=== PATIENT | female | born 1975 | race African-American/Black ===

== ENCOUNTER 2019-08-05 15:48 | Emergency (ER) | payer OTHER ==
--- NOTE | 2019-08-05 16:23 | UC ---
FLU HPI - HPI Summary HPI Summary: 44 yo female presents with flu-like symptoms. She tells me that over the last 4 days she has had fatigue, body aches/joint pain, decreased appetite, and intermittent headaches. She notes that her headache seems mostly frontal around her frontal sinuses and also points to her maxillary sinuses, but she does not feel congested or have a runny nose. She has not taken anything OTC for her symptoms. She has been eating and drinking, but does not feel hungry. She has not taken her temperature. Did not get a flu shot this year. She denies any medical history. Denies vision changes, neck pain, dizziness, numbness, weakness , sinus symptoms, sore throat, cough, SOB, chest pain/palpitations, abdominal pain, vomiting, diarrhea, dysuria, flank pain, vaginal bleeding or discharge. LMP was 1st week of Jul. - History of Current Complaint Chief Complaint: UCGeneralIllness Stated Complaint: HEADACHE, ABDOMINAL PAIN Time Seen by Provider: 08/05/19 16:21 Hx Obtained From: Patient Hx Last Menstrual Period: 07/24/19 Onset/Duration: Sudden Onset Severity Currently: Mild Severity Initially: Mild Pain Intensity: 4 Pain Scale Used: 0-10 Numeric - Allergy/Home Medications Allergies/Adverse Reactions: Allergies Allergy/AdvReac Type Severity Reaction Status Date / Time No Known Allergies Allergy Verified 08/05/19 16:11 PMH/Surg Hx/FS Hx/Imm Hx - Additional Past Medical History Additional PMH: None - Surgical History Surgical History: Yes Surgery Procedure, Year, and Place: WISDOM TEETH - Family History Known Family History: Positive: None - Social History Occupation: Employed Full-time Lives: With Family Alcohol Use: Rare Substance Use Type: None Smoking Status (MU): Never Smoked Tobacco Review of Systems All Other Systems Reviewed And Are Negative: No Constitutional: Positive: Fatigue Skin: Positive: Negative Eyes: Positive: Negative ENT: Positive: Negative Respiratory: Positive: Negative Cardiovascular: Positive: Negative Gastrointestinal: Positive: Nausea Genitourinary: Positive: Negative Motor: Positive: Negative Neurovascular: Positive: Negative Musculoskeletal: Positive: Negative Neurological/Mental Status: Positive: Headache Psychological: Positive: Negative Physical Exam - Summary Physical Exam Summary: GENERAL: NAD. WDWN. No pain distress. SKIN: No rashes, sores, ulcers, masses, lesions. HEENT: Head: AT/NC. Eyes: PERRLA. EOM intact. Conjunctiva clear without inflammation or discharge. Ears: Hearing grossly normal. TMs intact, no bulging, erythema, or edema. Nose: Nasal mucosa pink and moist. NTTP maxillary and frontal sinus. Throat: Posterior oropharynx without exudates, erythema, or tonsillar enlargement. Uvula midline. NECK: Supple. Nontender. Shotty anterior cervical LAD. CHEST: CTAB. No r/r/w. No accessory muscle use. Breathing comfortably and in no distress. CV: RRR. Pulses intact. Brisk cap refill. ABDOMEN: Soft. NTTP. Bowel sounds present MSK: FROM in B/L UEs and LEs with symmetric strength. NEURO: A&Ox3. CN: II: Peripheral molina intact. Vision normal. III, IV, : EOMI. No nystagmus. PERRLA. V: Sensations intact and symmetric. Opens mouth and clenches teeth. VII: No facial asymmetry. Forehead wrinkles. Grins, shuts eyes, frowns, puffs cheeks. VIII: Hearing intact to finger rub. IX, X: Swallows and coughs. Uvula midline. XI: Shrugs shoulders. Turns head against resistance. XII : No tongue deviation Aymewr-ir-bftc are intact. Gait with normal base. Romberg : maintains balance, no pronator drift. Normal speech. No facial drooping. PSYCH: Age appropriate behavior. Triage Information Reviewed: Yes Vital Signs: Initial Vital Signs Temp 100.0 F 08/05/19 16:05 Pulse 93 08/05/19 16:05 Resp 18 08/05/19 16:05 BP 154/93 08/05/19 16:05 Pulse Ox 100 08/05/19 16:05 Laboratory Tests 08/05/19 08/05/19 08/05/19 16:20 16:21 16:22 POC Urine Color Dark yellow POC Urine Clarity Slightly cloudy POC Urine pH 6.0 POC Ur Specif Hooper 1.025 POC Urine Protein Negative POC Ur Glucose (UA) Negative POC Urine Ketones 1+ A POC Urine Blood 1+ A POC Urine Nitrite Negative POC Urine Bilirubin 1+ A POC Urine Urobilinogen 0.2 POC U Leukocyte Esteras Negative POC Ur Test Negative Influenza A (Rapid) Negative Influenza B (Rapid) Negative Vital Signs: Temp Pulse Resp BP Pulse Ox 100.0 F 93 18 115/77 100 08/05/19 16:05 08/05/19 16:05 08/05/19 16:05 08/05/19 16:57 08/05/19 16:05 Ondansetron ODT TAB* [Zofran 4 MG Odt TAB*] 4 mg PO Q8H PRN #12 tab.odt [Rx] Vital Signs Reviewed: Yes Flu Course/Dx - Course Course Of Treatment: UA as above. POC flu negative. Urine negative. Recheck BP much improved from intake vitals. She does have some shotty anterior cervical LAD, but exam is otherwise unremarkable and is without abdominal tenderness or neurological deficits. Favor a viral illness at this time. Discussed with pt and she mentions that she felt similar to this when she had lyme disease in the past. Will obtain CBC, CMP , TSH, lyme, and lipase today to further evaluate her symptoms. I did discuss her incidental finding of microscopic hematuria today and recommended she f/u with her PCP within 1 week for a recheck of this, review of bloodwork, and recheck of her symptoms. If she develops a fever, abdominal pain, vomiting, SOB/chest pain, or worsening symptoms to go to the ED immediately. She voiced understanding and agrees with the plan. - Differential Dx/Diagnosis Provider Diagnosis: Fatigue, Body aches, Decreased appetite Discharge ED - Sign-Out/Discharge Documenting (check all that apply): Patient Departure All imaging exams completed and their final reports reviewed: No Studies - Discharge Plan Condition: Stable Disposition: HOME Prescriptions: Ondansetron ODT TAB* [Zofran 4 MG Odt TAB*] 4 mg PO Q8H PRN #12 tab.odt PRN Reason: Nausea Patient Education Materials: Hematuria (ED), Viral Syndrome (ED) Referrals: Dorina Cohen MD [Primary Care Provider] - 1 Week Additional Instructions: If you develop a fever, shortness of breath, chest pain, abdominal pain, vomiting, new or worsening symptoms - please call your PCP or go to the ED immediately. - Your exam revealed some swollen lymph nodes in your neck today, but was otherwise normal/unremarkable. - You did have some microscopic blood in your urine, which is likely an incidental finding, but I recommend you have this rechecked with your PCP. - We have drawn labwork today to further evaluate your symptoms. Please schedule an appointment with your primary doctor within 1 week for a recheck of your symptoms, hematuria (blood in urine), and review of labwork. - Billing Disposition and Condition Condition: STABLE Disposition: Home
[2019-08-05 16:32] LABS: Influenza A Molecular Negative (Negative); Influenza B Molecular Negative (Negative)
[2019-08-05 16:57] VITALS: BP 115/77
[2019-08-05 18:51] LABS: ABS Lymphocytes 1.3 10^3/ul (1.0-4.8); ABS Monocytes 0.3 10^3/ul (0-0.8); ABS Neutrophils 5.3 10^3/ul (1.5-7.7); Eosinophil % 0.3 %; Hematocrit 44 % (35-47); Hemoglobin 15.3 g/dL (12.0-16.0); Lymphocyte % 18.9 %; Mean Corpuscular HGB Conc 35 g/dL (31-36); Mean Corpuscular Hemoglobin 30 pg (27-31); Mean Corpuscular Volume 88 fL (80-97); Mean Platelet Volume 8.6 fL (7.4-10.4); Platelet Count 300 10^3/uL (150-450); Red Blood Count 5.03 10^6 /uL (3.70-4.87); Red Cell Distribution Width 13 % (10-15)
[2019-08-05 19:11] LABS: Albumin 4.6 g/dL (3.2-5.2); Anion Gap 9 mmol/L (2-11); CO2 Carbon Dioxide 25 mmol/L (22-32); Calcium 9.6 mg/dL (8.6-10.3); Chloride 103 mmol/L (101-111); Potassium 4.3 mmol/L (3.5-5.0); Sodium 137 mmol/L (135-145)
[2019-08-05 19:17] LABS: ALT 8 U/L (7-52); AST 13 U/L (13-39); Albumin/Globulin Ratio 1.7 (1-3); Alkaline Phosphatase 53 U/L (34-104); BUN/Creatinine Ratio 7.5 (8-20); Blood Urea Nitrogen 6 mg/dL (6-24); EGFR African American 94.3 (>60); EGFR Non-African American 77.9 (>60); Globulin 2.7 g/dL (2-4); Glucose 97 mg/dL (70-100); Total Protein 7.3 g/dL (6.4-8.9)
--- NOTE | 2019-08-06 08:10 | UC ---
- Progress Note Progress Note: CBC with diff, CMP, TSH reviewed no change in management Anuj 08/06/19 Course/Dx - Diagnoses Provider Diagnoses: Fatigue, Body aches, Decreased appetite Discharge ED - Sign-Out/Discharge Documenting (check all that apply): Post-Discharge Follow Up All imaging exams completed and their final reports reviewed: No Studies - Discharge Plan Condition: Stable Disposition: HOME Prescriptions: Ondansetron ODT TAB* [Zofran 4 MG Odt TAB*] 4 mg PO Q8H PRN #12 tab.odt PRN Reason: Nausea Patient Education Materials: Hematuria (ED), Viral Syndrome (ED) Referrals: Dorina Cohen MD [Primary Care Provider] - 1 Week Additional Instructions: If you develop a fever, shortness of breath, chest pain, abdominal pain, vomiting, new or worsening symptoms - please call your PCP or go to the ED immediately. - Your exam revealed some swollen lymph nodes in your neck today, but was otherwise normal/unremarkable. - You did have some microscopic blood in your urine, which is likely an incidental finding, but I recommend you have this rechecked with your PCP. - We have drawn labwork today to further evaluate your symptoms. Please schedule an appointment with your primary doctor within 1 week for a recheck of your symptoms, hematuria (blood in urine), and review of labwork. - Billing Disposition and Condition Condition: STABLE Disposition: Home
== END 2019-08-05 17:00 | disposition home or self-care (01) ==
LOC: UCEAST 15:48
DX: R53.83 Other fatigue (principal); M79.10 Myalgia, unspecified site; R63.8 Other symptoms and signs concerning food and fluid intake; R51 Headache; R11.0 Nausea
CPT/HCPCS: 36415; 80053; 81003; 83690; 84443; 84702; 85025; 86618; 99212; G0463

== ENCOUNTER 2019-08-11 13:06 | Emergency (ER) | payer OTHER ==
[2019-08-11 13:14] VITALS: BP 129/87
--- NOTE | 2019-08-11 13:56 | UC ---
General HPI - HPI Summary HPI Summary: 44-year-old woman comes in with chief complaint of a headache and epigastric pain. Symptoms started about 11 days ago. Patient was seen here on July and had normal CBC and CMP. Urine did have some blood in it. Lyme screen was negative. Patient has had a history of Lyme disease in the past. Headache is mostly around the frontal sinuses. Patient denies sinusitis symptoms. Occasionally the headaches also in the occiput. She has had intermittent blurry vision. Approximately a month ago she had eye examination and was prescribed reader glasses. Reports she has not really been using the reader glasses. Patient occasionally has left arm tingling. Patient reports she's had similar symptoms ever since she's had Lyme disease. No complaint of any focal neurologic deficit that's constant. Patient describes the abdominal pain as burning. Primarily in the epigastrium. She has decreased appetite. Reports the last time she was yesterday. - History of Current Complaint Chief Complaint: UCHeadache Stated Complaint: HEADACHE, STOMACHE ACHE Time Seen by Provider: 08/11/19 13:30 Hx Last Menstrual Period: 07/24/2019 Pain Intensity: 5 - Allergy/Home Medications Allergies/Adverse Reactions: Allergies Allergy/AdvReac Type Severity Reaction Status Date / Time No Known Allergies Allergy Verified 08/11/19 13:14 Home Medications: Home Medications DOXYcycline CAP(*) [DOXYcycline 100MG CAP(*)] 100 mg PO BID #20 cap 08/11/19 [Rx ] Fluticasone NASAL SPRAY 50MCG* [Flonase NASAL SPRAY 50MCG*] 2 spray BOTH NARES DAILY #1 btl 08/11/19 [Rx] Omeprazole 20 mg PO BID #30 capsule. 08/11/19 [Rx] Ondansetron ODT TAB* [Zofran 4 MG Odt TAB*] 4 mg PO Q6H PRN #15 tab.odt [Rx] PMH/Surg Hx/FS Hx/Imm Hx Previously Healthy: Yes - Surgical History Surgical History: Yes Surgery Procedure, Year, and Place: WISDOM TEETH - Family History Known Family History: Positive: None - Social History Alcohol Use: Rare Substance Use Type: None Smoking Status (MU): Never Smoked Tobacco Review of Systems All Other Systems Reviewed And Are Negative: Yes Constitutional: Positive: Fatigue, Other - see hpi Skin: Positive: Negative Eyes: Positive: Negative ENT: Positive: Other - see hpi Respiratory: Positive: Negative Cardiovascular: Positive: Negative Gastrointestinal: Positive: Abdominal Pain, Other - see hpi Genitourinary: Positive: Other - see hpi Motor: Positive: Negative Neurovascular: Positive: Negative Musculoskeletal: Positive: Negative Neurological/Mental Status: Positive: Headache Psychological: Positive: Negative Is Patient Immunocompromised?: No Physical Exam Triage Information Reviewed: Yes Appearance: No Pain Distress, Well-Nourished, Other: - Appears fatigued. Vital Signs: Initial Vital Signs Temp 99.2 F 08/11/19 13:11 Pulse 106 08/11/19 13:11 Resp 16 08/11/19 13:11 BP 129/87 08/11/19 13:11 Pulse Ox 99 08/11/19 13:11 Vital Signs Reviewed: Yes Eye Exam: Normal Eyes: Positive: Conjunctiva Clear, Other: - PERRLA EOMI. No photophobia. Optic nerve disc has clear borders on the left. I was not able to visualize the optic nerve on the right. ENT: Positive: Pharynx normal, TMs normal Neck: Positive: Supple Respiratory: Positive: Lungs clear, Normal breath sounds, No respiratory distress Cardiovascular: Positive: RRR Musculoskeletal: Positive: Strength Intact, ROM Intact Neurological: Positive: Alert Psychological: Positive: Age Appropriate Behavior Skin Exam: Normal Course/Dx - Course Course Of Treatment: Site Monitor: Franky Evans ([id number]) Head Men'S Tennis Coach: FRANCISCO (ROSIEANCE) Report Date: 08/11/2019 14:43:00 Report Status: Final Start of Report Content Patient Name: JUANCARLOS VEGA Medical Record#: [id number] Ordering Physician: Reji Lou MD Acct.#: [id number] : Age: 44 Sex: F Location: [facility] Exam Date: 08/11/19 1356 ADM Status: REG ER Order Information: US GALL BLADDER Accession Number: [id number] CPT: 06170 INDICATION: Epigastric/right upper quadrant pain. COMPARISON: There are no relevant prior studies available for comparison. TECHNIQUE: Multiple real-time images of the right upper quadrant were obtained. FINDINGS: Sonographic Napier sign is negative. The gallbladder appear normal. No gallstones, gallbladder wall thickening or pericholecystic fluid is present. No intra or extrahepatic ductal distention is present. The common bile duct measured 0.3 cm in diameter. The liver is normal in morphology without focal abnormality. The pancreas is mostly obscured by overlying bowel gas. The 9.8 cm right kidney is normal in size without evidence for hydronephrosis. The imaged segments of the aorta and IVC are unremarkable. IMPRESSION: UNREMARKABLE GALLBLADDER. NO INTRA OR EXTRA HEPATIC BILIARY DUCTAL DILATATION. <Electronically signed by Franky Evans MD in OV> 08/11/19 1440 Dictated By: Franky Evans MD Dictated Date/Time: 08/11/19 1435 Transcribed Date/Time: 08/11/19 1435 Copy to: CC:Dorina Cohen MD ; Reji Lou MD Imaging - [facility] - [place] [facility] [address] [address] ph ([phone]) ph ([phone]) ph ([phone]) ==== End of Report Content Site Monitor: Franky Evans, ([id number]) Head Men'S Tennis Coach: FRANCISCO (NUANCE) Report Date: 08/11/2019 14:17:00 Report Status: Final Start of Report Content Patient Name: JUANCARLOS VEGA Medical Record#: [id number] Ordering Physician: Reji Lou MD Acct.#: [id number] : Age: 44 Sex: F Location: [facility] Exam Date: 08/11/19 1356 ADM Status: [facility] Order Information: CT BRAIN WO Accession Number: [id number] CPT: 84960 INDICATION: Headache. COMPARISON: There are no relevant prior studies available for comparison. TECHNIQUE: Contiguous axial sections of the brain were obtained from the skull base to the vertex without contrast. FINDINGS: There is no hemorrhagic focus, mass effect or midline shift. The amaya- white matter differentiation is grossly maintained without abnormal cerebral edema. The ventricles are of conventional size and configuration. The basal cisterns are patent. There is no abnormal extra axial collection. The globes and orbits are symmetric. The paranasal sinuses and mastoid air cells are predominantly well aerated. IMPRESSION: No acute intracranial abnormality. <Electronically signed by Franky Evans MD in OV> 08/11/19 1414 Dictated By: Franky Evans MD Dictated Date/Time: 08/11/19 141 Transcribed Date/Time: 08/11/19 141 Copy to: CC:Dorina Cohen MD; Reji Lou MD Imaging - [facility] - [place] [facility] [address] [address] ph ) ph ([phone]) ph ([phone]) End of Report Content I discussed the ultrasound and CT with the patient. Patient's headache is primarily frontal and maxillary headache with orbital involvement. I recommended further evaluation ophthalmology for possible eye cause for the headache. Patient is concerned that these symptoms are from a recurrence of her Lyme disease. No obvious signs of sinusitis other than the frontal and maxillary feeling of pressure. Will treat with Flonase and doxycycline. For the epigastric pain prescribed omeprazole and Zofran. Patient will be follow- up with primary care physician for her symptoms. Get reevaluated sooner if worse or any questions or concerns. - Diagnoses Provider Diagnosis: Headache, Epigastric pain Discharge ED - Sign-Out/Discharge Documenting (check all that apply): Patient Departure All imaging exams completed and their final reports reviewed: Yes - Discharge Plan Condition: Stable Disposition: HOME Prescriptions: DOXYcycline CAP(*) [DOXYcycline 100MG CAP(*)] 100 mg PO BID #20 cap Fluticasone NASAL SPRAY 50MCG* [Flonase NASAL SPRAY 50MCG*] 2 spray BOTH NARES DAILY #1 btl Omeprazole 20 mg PO BID #30 capsule. Ondansetron ODT TAB* [Zofran 4 MG Odt TAB*] 4 mg PO Q6H PRN #15 tab.odt PRN Reason: Nausea Patient Education Materials: Acute Headache (ED), Epigastric Pain (ED) Referrals: Dorina Cohen MD [Primary Care Provider] - [facility] [Provider Group] Additional Instructions: FOLLOW UP WITH YOUR PRIMARY CARE DOCTOR AND OPHTHALMOLOGY. GET REEVALUATED SOONER IF NOT IMPROVED OR WORSE OR ANY QUESTIONS OR CONCERNS. - Billing Disposition and Condition Condition: STABLE Disposition: Home
== END 2019-08-11 15:20 | disposition home or self-care (01) ==
LOC: UCEAST 13:06
DX: R51 Headache (principal); R10.13 Epigastric pain; R53.83 Other fatigue
CPT/HCPCS: 70450; 76705; 99212; G0463

== ENCOUNTER 2019-08-22 09:38 | Emergency (ER) | payer OTHER ==
--- NOTE | 2019-08-22 10:40 | ED ---
Headache - HPI Summary HPI Summary: 44 year old F presenting to [facility] accompanied by her mother with a chief complaint of a constant headache, fatigue, abdominal pain that she describes as burning, blurred vision, decreased appetite, and tingling down her left arm, since 3 weeks ago. The patient rates the pain 8/10 in severity. Patient reports that her headache is worse in the morning. Symptoms aggravated by nothing. Symptoms alleviated by nothing. Patient denies feeling off-balance or a history of diabetes or hypertension. She was seen by her PCP for her symptoms and was prescribed a migraine medication which she did not take. Patient denies any trauma or recent travel. She has a history of Lyme disease. Medication list reviewed. Allergy list reviewed. Home Medications Medication Instructions Recorded Confirmed Type Fluticasone NASAL SPRAY 50MCG* 2 spray BOTH NARES DAILY #1 btl 08/11/19 Rx [Flonase NASAL SPRAY 50MCG*] Ondansetron ODT TAB* [Zofran 4 MG 4 mg PO Q6H PRN #15 tab.odt 08/11/19 Rx Odt TAB*] Amoxicillin/Clavulanate TAB* 1 tab PO BID 08/22/19 08/22/19 History [Augmentin TAB 875*] SUMAtriptan TAB* [Imitrex TAB*] 50 mg PO SEE INSTRUCTIONS MDD 4 08/22/19 History tabs - History Of Current Complaint Chief Complaint: EDHeadache Stated Complaint: HEADACHE, LEFT ARM TINGLING, BLURRY VISION PER PT Time Seen by Provider: 08/22/19 10:28 Hx Obtained From: Patient, Family/Property Specialist Hx Last Menstrual Period: 07/24/2019 Onset/Duration: Started days ago, Started weeks ago Initially Headache Was: Moderate Currently Pain Is: Moderate Timing: Constant Character: Pressure Aggravating Factor: Nothing Allevating Factors: Nothing Associated Signs And Symptoms: Visual Changes, Other (Noted In Comments) - Fatigue; abdominal pain; decreased appetite; tingling in her left arm - Allergies/Home Medications Allergies/Adverse Reactions: Allergies Allergy/AdvReac Type Severity Reaction Status Date / Time No Known Allergies Allergy Verified 08/22/19 14:08 Home Medications: Home Medications Fluticasone NASAL SPRAY 50MCG* [Flonase NASAL SPRAY 50MCG*] 2 spray BOTH NARES DAILY #1 btl 08/11/19 [Rx Confirmed 08/22/19] Ondansetron ODT TAB* [Zofran 4 MG Odt TAB*] 4 mg PO Q6H PRN #15 tab.odt [Rx Confirmed 08/22/19] Amoxicillin/Clavulanate TAB* [Augmentin TAB 875*] 1 tab PO BID 08/22/19 [ History Confirmed 08/22/19] Metoclopramide TAB* [Reglan TAB*] 10 mg PO Q6H PRN #20 tab 08/22/19 [Rx] SUMAtriptan TAB* [Imitrex TAB*] 50 mg PO SEE INSTRUCTIONS MDD 4 tabs 08/22/19 [ History Confirmed 08/22/19] PMH/Surg Hx/FS Hx/Imm Hx Endocrine/Hematology History: Denies: Hx Diabetes, Hx Thyroid Disease Cardiovascular History: Denies: Hx Hypertension, Hx Pacemaker/ICD Respiratory History: Denies: Hx Asthma, Hx Chronic Obstructive Pulmonary Disease (COPD) GI History: Denies: Hx Ulcer History: Denies: Hx Renal Disease Sensory History: Denies: Hx Hearing Aid Psychiatric History: Denies: Hx Panic Disorder - Surgical History Surgery Procedure, Year, and Place: WISDOM TEETH Infectious Disease History: Yes - Lyme disease Infectious Disease History: Denies: Hx Hepatitis, Hx Human Immunodeficiency Virus (HIV), Traveled Outside the [place] in Last 30 Days - Family History Known Family History: Positive: Hypertension, Diabetes - Social History Alcohol Use: Rare Substance Use Type: Reports: None Smoking Status (MU): Never Smoked Tobacco Review of Systems Positive: Fatigue Positive: Blurred Vision Positive: Abdominal Pain, Other - Decreased appetite Positive: Other - Tingling in left arm Neurological/Mental Status: Negative - Balance problems Positive: Headache All Other Systems Reviewed And Are Negative: Yes Physical Exam - Summary Physical Exam Summary: Constitutional: Well-developed, Well-nourished, Alert. (-) Distressed Skin: Warm, Dry HENT: Normocephalic; Atraumatic Eyes: Conjunctiva normal Neck: Musculoskeletal ROM normal neck. (-) JVD, (-) Stridor, (-) Tracheal deviation Cardio: Rhythm regular, rate normal, Heart sounds normal; Intact distal pulses; The pedal pulses are 2+ and symmetric. Radial pulses are 2+ and symmetric. (-) Murmur Pulmonary/Chest wall: Effort normal. (-) Respiratory distress, (-) Wheezes, (-) Rales Abd: Soft, (-) tenderness, (-) Distension, (-) Guarding, (-) Rebound Musculoskeletal: (-) Edema Lymph: (-) Cervical adenopathy Neuro: Alert, Oriented x3; no nystagmus; no focal deficits; no dysmetria Psych: Mood and affect Normal Triage Information Reviewed: Yes Vital Signs On Initial Exam: Initial Vitals Temp Pulse Resp BP Pulse Ox 98.3 F 100 16 139/95 100 08/22/19 09:44 08/22/19 09:44 08/22/19 09:44 08/22/19 09:44 08/22/19 09:44 Vital Signs Reviewed: Yes Procedures - Sedation Patient Received Moderate/Deep Sedation with Procedure: No Diagnostics - Vital Signs Vital Signs Temp Pulse Resp BP Pulse Ox 08/22/19 09:44 98.3 F 100 16 139/95 100 - Laboratory Result Diagrams: 08/22/19 10:51 08/22/19 10:51 Lab Statement: Any lab studies that have been ordered have been reviewed, and results considered in the medical decision making process. Headache Course/Dx - Course Course Of Treatment: 44 year old F presenting to [facility] accompanied by her mother with a chief complaint of a constant headache, fatigue, abdominal pain that she describes as burning, blurred vision, decreased appetite, and tingling down her left arm, since 3 weeks ago. Physical exam findings: no nystagmus, no focal deficits, no dysmetria. Laboratory results with no significant abnormalities except for a potassium of 3.3, AST of 12, and ALT of 6. In the ED course, the patient was given benadryl, potassium chloride, normal saline, reglan, solu-medrol, and toradol. We discussed patient care with Dr. Espinosa at 13 :58 who recommends a single dose of IV Solumedrol and script for Reglan. Follow- up with neurology in 6-8 weeks if symptoms are ongoing. May need an MRI of the brain for further evaluation. Patient will be discharged with prescription for Reglan and follow up from neurology. The patient is agreeable with this plan. - Diagnoses Provider Diagnoses: Migraine - Physician Notifications Discussed Care Of Patient With: Yissel Espinosa Time Discussed With Above Provider: 10:55 - Discussed with Dr. Espinosa, will consult in the ED. Instructed by Provider To: Other - [13:58] Spoke with Dr. Espinosa who recommends single dose of IV Solumedrol and script for Reglan. Follow-up with neurology in 6-8 weeks if symptoms are ongoing. May need an MRI of the brain for further evaluation. Discharge ED - Sign-Out/Discharge Documenting (check all that apply): Patient Departure - Discharge Plan Condition: Stable Disposition: HOME Prescriptions: Metoclopramide TAB* [Reglan TAB*] 10 mg PO Q6H PRN #20 tab PRN Reason: Nausea Patient Education Materials: Migraine Headache (ED) Referrals: Dorina Cohen MD [Primary Care Provider] - Yissel Espinosa MD [Medical Doctor] - 09/26/19 Additional Instructions: Follow-up with neurology in 6-8 weeks if symptoms are ongoing. Return to the emergency department for changing or worsening symptoms. - Billing Disposition and Condition Condition: STABLE Disposition: Home - Attestation Statements Document Initiated by Scribe: Yes Documenting Scribe: Gabriela Guerrero Provider For Whom Scribe is Documenting (Include Credential): Dwayne Sparks DO Scribe Attestation: Gabriela Nieves scribed for Dwayne Sparks DO on 08/22/19 at 1544. Scribe Documentation Reviewed: Yes Provider Attestation: The documentation as recorded by the Gabriela ngo accurately reflects the service I personally performed and the decisions made by Dwayne san DO Status of Scribe Document: Viewed
[2019-08-22] MEDS ORDERED: Metoclopramide IV* 5 MG/ML 2 ML VIAL IV ONE (10:46)
[2019-08-22] MEDS ORDERED: Ketorolac INJ* 30 MG/ML 1 ML VIAL IV PUSH ONE (10:46)
[2019-08-22] MEDS ORDERED: NS 0.9% 1000 ML** 1,000 ML IV ONE (10:46)
[2019-08-22] MEDS ORDERED: diPHENhydraMINE IV* 50 MG/ML 1 ml VIAL (BENADRYL) IV ONE (10:46)
[2019-08-22 10:57] LABS: ABS Lymphocytes 1.2 10^3/ul (1.0-4.8); ABS Monocytes 0.3 10^3/ul (0-0.8); ABS Neutrophils 4.7 10^3/ul (1.5-7.7); Eosinophil % 0.3 %; Hematocrit 41 % (35-47); Hemoglobin 14.5 g/dL (12.0-16.0); Lymphocyte % 18.6 %; Mean Corpuscular HGB Conc 35 g/dL (31-36); Mean Corpuscular Hemoglobin 31 pg (27-31); Mean Corpuscular Volume 88 fL (80-97); Mean Platelet Volume 7.9 fL (7.4-10.4); Nucleated Red Blood Cells % 0.2; Platelet Count 265 10^3/uL (150-450); Red Blood Count 4.69 10^6 /uL (3.70-4.87); Red Cell Distribution Width 12 % (10-15); White Blood Count 6.3 10^3/uL (3.5-10.8)
[2019-08-22 11:23] LABS: ALT 6 U/L (7-52); AST 12 U/L (13-39); Albumin 4.3 g/dL (3.2-5.2); Albumin/Globulin Ratio 1.7 (1-3); Alkaline Phosphatase 42 U/L (34-104); Anion Gap 8 mmol/L (2-11); BUN/Creatinine Ratio 9.8 (8-20); Blood Urea Nitrogen 8 mg/dL (6-24); C Reactive Protein < 1.00 mg/L (<8.01); CO2 Carbon Dioxide 25 mmol/L (22-32); Calcium 9.1 mg/dL (8.6-10.3); Chloride 105 mmol/L (101-111); EGFR African American 91.6 (>60); EGFR Non-African American 75.7 (>60); Globulin 2.5 g/dL (2-4); Glucose 100 mg/dL (70-100); Potassium 3.3 mmol/L (3.5-5.0); Sodium 138 mmol/L (135-145); Total Protein 6.8 g/dL (6.4-8.9)
[2019-08-22] MEDS ORDERED: Potassium Chlor TAB* 20 MEQ TAB.ER PO ONE (11:25)
[2019-08-22 12:42] LABS: Erythrocyte Sed Rate 1 mm/Hr (0-19)
[2019-08-22] MEDS ORDERED: methylPREDNISolone 125 MG* 2 ML VIAL IV ONE (13:59)
[2019-08-22 14:18] VITALS: BP 101/67
--- NOTE | 2019-08-22 15:06 | CONSULT ---
Consult Consult: Neurology Inpatient Consult Note Date of service: 08/22/2019 Reason for consult: Neurology was consulted by Dr. Clare Galan. The history was obtained by the patient. Chief complaint: Headache History of Present Illness: Ms. Janice Branch is a 44-year-old female with history of treated Lyme disease in the past who presents with a three week history of constant headache. The headache is described as interchangeable pain that is sometimes in the front, but occasionally in the right and left back of the head. The pain is dull in sensation, 8/10 in severity, non-radiating, and associated with photophobia and nausea. The pain improved after Toradol, Benadryl, and Reglan. The pain is 4/ 10 in severity. She experiences blurry vision in both eyes when the headache is severe. The pain is no exacerbated when coughing, sneezing, or straining. She noticed a tingling sensation few days ago involving the left arm, mostly in the lateral surface of the left forearm. She denied any neck pain. She denied any focal weakness or paresthesia at this time. She has been taking over the counter NSAIDs and Tylenol. She has noticed increase in abdominal pain since taking these medications. The pain is epigastric, non-radiating, that improved with Reglan. In terms of the history of Lyme, the patient was treated for over 30 days with Doxycycline. She was also recently treated with Doxycylcine for 10 days for suspected sinusitis. Labs, Imaging and Other Diagnostics: Potassium: 3.3 IMAGING: CT head without contrast 08/11/2019: No acute intracranial abnormality. Past Medical History: Nail fungus Past Surgical History: None Family History: Maternal grandmother had a stroke. There is no family history of migraine headaches or seizures. Social History: She is single. She has three children. She owns her own business. She has no history of tobacco or alcohol abuse. Allergies No Known Allergies Allergy (Verified 08/22/19 14:08) Review of Systems: A 14-point ROS was obtained and otherwise negative except for what was mentioned in the HPI. Physical Exam: Vital Signs - 12 hr Temp Pulse Resp BP Pulse Ox 08/22/19 14:17 98.8 F 84 14 101/67 98 08/22/19 13:38 140/78 08/22/19 13:08 75 116/79 100 08/22/19 13:00 80 99 08/22/19 12:38 79 117/79 100 08/22/19 12:08 75 129/84 100 08/22/19 12:00 79 100 08/22/19 11:47 79 141/82 100 08/22/19 11:08 72 126/81 99 08/22/19 11:07 69 99 08/22/19 09:44 98.3 F 100 16 139/95 100 General: well nourished, well developed. Alert, cooperative, no apparent distress, appears stated age. NIHSS: 0 Head: normocephalic, without obvious abnormality. No occipital notch tenderness. Eyes: conjunctivae/corneas clear Neck: supple, symmetrical. No carotid bruit. No lymphadenopathy. Lungs: clear to auscultation bilaterally, non-labored CV: regular rhythm, S1, S2 normal, radial pulses palpable Extremities: normal range of motion with no cyanosis. Skin: no skin lesions or lacerations Psych: affect-broad and normal mood. Easy to establish rapport. Neurological examination: Mental status: awake; alert and oriented to person, place, time, & general circumstances; speech & language including expression, naming, repetition, & comprehension was assessed and found to be normal. Cranial nerves: I: not tested II, III, IV, : normal confrontation B/L, Pupils midrange and reactive to light , normal consensual response; extraocular muscles are intact; no ptosis; no conjugate or asymmetrical nystagmus. Fundoscopic examination shows normal disc margins and normal venous pulsation. V 1/2/3: sensation is intact on forehead, cheeks, and jaw region VII: no facial droop; facial symmetry while smiling & wrinkling of forehead; tight lid closure VIII: able to hear throughout the history process IX & X: symmetric palatal elevation XI: normal strength against resistance XII: tongue is symmetrical & midline with no atrophy or fasciculations Motor (R/L): no abnormal movements, no pronator drift. Normal bulk and tone throughout. No fasciculations. Neck extension 5. Shoulder ROM is full. Shoulder abduction 5/5. Elbow flexion 5/5, extension 5/5. Wrist flexion 5/5, extension 5/5. Finger flexion 5/5, extension 5/5, abduction 5/5. Hip flexion 5/5, abduction 5/5. Knee flexion 5/5, extension 5/5. Ankle dorsiflexion 5/5, plantarflexion 5/5. Great toe extension 5/5. Reflexes: 1+ throughout. Plantar flexor response bilaterally. Sensation is intact to light touch throughout. Normal vibration and proprioception at the great toes. Coordination: normal finger to nose and rapid alternating movements. Gait & Station: narrow based; normal stance and gait. No ataxia. Assessment: 1. Headache. Most likely non-intractable status migrainosus given the description of unilateral pain, lasting more than 4 hours, associated with photophobia and nausea, with a negative neurologic and fundoscopic examination. She responded well to Reglan, Toradol, and Benadryl. Her headache dropped from a 8 to a 4/10 in severity. She has no fevers or leukocytosis to suspect meningitis. She doesn't snore when sleeping and has a normal Mallampati score so it's unlikely this is secondary to FABIOLA. She has no Valsalva inducing headache and a normal fundoscopic examination thus it's not likely to be related to IHH. 2. Abdominal pain, relieved by Reglan therapy. This can be due to the nausea, anorexia, and NSAID therapy causing gastritis or PUD. 3. Hypokalemia: defer to the primary team. Recommendations: - Check vitamin B12, cortisol, and TSH to evaluate for secondary causes of headache. - Recommend discontinuing all NSAIDs and acetaminophen therapy - Give one dose of methylprednisolone 125 mg IV x 1 for acute abortive therapy of the headache - Start her on Reglan 10 mg every 8 hours for 3 days for nausea and headaches - Start Riboflavin 100 mg twice daily and magnesium oxide 400 mg daily. - She can take Sumatriptan 100 mg x 1 for the onset of severe headache. It should be taken within 2 hours of the onset of the headache. Some of the side effects include chest tightness and paresthesia. - If her headache persist, or if she develops any neurological deficits, she was instructed to come back to the ED immediately. - Keep a headache diary. - She may need an MRI of the brain with and without contrast if her headache persists. Follow-up with neurology in 6-8 weeks. We will arrange a follow-up appointment. Discussed the above recommendations with the patient and family at bedside. Yissel Espinosa MD Date: 08/22/2019 Time: 8540
[2019-08-22 15:22] LABS: TSH (Thyroid Stimulating Horm) 1.34 mcIU/mL (0.34-5.60)
== END 2019-08-22 14:17 | disposition home or self-care (01) ==
LOC: ED 09:38
DX: G43.901 Migraine, unspecified, not intractable, with status migrainosus (principal); R52 Pain, unspecified; E87.6 Hypokalemia; R53.83 Other fatigue; R20.2 Paresthesia of skin
CPT/HCPCS: 36415; 80053; 82533; 82607; 83735; 84443; 85025; 85652; 86140; 96361; 96374; 96375; 99283; A9270-GY; J1200; J1885; J2765; J2930